=== PATIENT | male | born 1970 | race Caucasian/White ===

== ENCOUNTER → 2022-02-07 | Outpatient (CLI) | payer OTHER ==
[~2022-02-07] MED LIST: ECOT81TA5 PO; ELIQ5TAB; IBUP-1114 PO
== END ==
LOC: M SOG 07:52
PROVIDERS: ATTEND Orthopaedic Surgery Adult Reconstructive Orthopaedic Surgery
DX: M25.551 Pain in right hip (principal); M25.552 Pain in left hip

== ENCOUNTER → 2023-03-30 | Day surgery (SDC) | payer OTHER ==
[~2023-03-30] VITALS: Ht 185.4 cm; Wt 92.4 kg
[~2023-03-30] MED LIST changes: +NS 1,000 ML IV ONE; +ONDANSETRON 4MG ORAL DISINTEGRATING TAB PO ONE; +PRED5TA PO; +propofoL 200 MG/20 ML VIAL As Ordered ONE
[2023-03-30 10:45] VITALS: BP 112/84; O2SAT 86
== END | disposition home or self-care (01) ==
LOC: M OPP 07:40
PROVIDERS: ATTEND Internal Medicine Gastroenterology
DX: Z12.11 Encounter for screening for malignant neoplasm of colon (principal); D12.6 Benign neoplasm of colon, unspecified; K64.0 First degree hemorrhoids; Z87.891 Personal history of nicotine dependence; Z79.52 Long term (current) use of systemic steroids; Z79.1 Long term (current) use of non-steroidal anti-inflammatories (NSAID)